=== PATIENT | female | born 1985 | race American Indian/Alaskan Native ===

== ENCOUNTER 2017-06-30 17:58 | Emergency (ER) | payer SELFPAY ==
[2017-06-30 20:29] VITALS: BP 122/54
--- NOTE | 2017-06-30 23:57 | Emergency Department Report ---
ED ENT HPI - General Chief complaint: Sore Throat Stated complaint: SORE THROAT Time Seen by Provider: 06/30/17 23:53 Source: patient Mode of arrival: Ambulatory Limitations: No Limitations - History of Present Illness Initial comments: 32-year-old female comes in complaining of sore throat for 2 days. Patient reports that it hurts to swallow. She has no other complaints. She reports the pain is 6 out of 10. She has not taken any pain medication for this. Has a past medical history migraines. Currently takes no medications. MD complaint: sore throat, difficulty swallowing -: days(s) (2) Location: throat Severity scale (0 -10): 9 Quality: aching, sharp Consistency: constant Improves with: none Worsens with: swallowing Associated Symptoms: sore throat - Related Data Previous Rx's Medication Instructions Recorded Last Taken Type Butalbit/Acetamin/Caff/Codeine 1 each PO Q4H PRN #20 capsule 12/18/15 Unknown Rx [Fioricet/Codeine 45-547-58-30] Ibuprofen [Motrin 800 MG tab] 800 mg PO Q8H PRN #15 tablet 07/01/17 Unknown Rx Allergies Allergy/AdvReac Type Severity Reaction Status Date / Time No Known Allergies Allergy Unverified 05/06/14 11:36 ED Dental HPI - General Chief complaint: Sore Throat Stated complaint: SORE THROAT Time Seen by Provider: 06/30/17 23:53 Source: patient Mode of arrival: Ambulatory Limitations: No Limitations - Related Data Previous Rx's Medication Instructions Recorded Last Taken Type Butalbit/Acetamin/Caff/Codeine 1 each PO Q4H PRN #20 capsule 12/18/15 Unknown Rx [Fioricet/Codeine [id number]] Ibuprofen [Motrin 800 MG tab] 800 mg PO Q8H PRN #15 tablet 07/01/17 Unknown Rx Allergies Allergy/AdvReac Type Severity Reaction Status Date / Time No Known Allergies Allergy Unverified 05/06/14 11:36 ED Review of Systems ROS: Stated complaint: SORE THROAT Other details as noted in HPI Constitutional: denies: chills, fever Eyes: denies: eye pain, eye discharge, vision change ENT: throat pain Respiratory: denies: cough, shortness of breath, wheezing Cardiovascular: denies: chest pain, palpitations Endocrine: no symptoms reported Gastrointestinal: denies: abdominal pain, nausea, diarrhea Genitourinary: denies: urgency, dysuria, discharge Musculoskeletal: denies: back pain, joint swelling, arthralgia Skin: denies: rash, lesions Neurological: denies: headache, weakness, paresthesias Psychiatric: denies: anxiety, depression Hematological/Lymphatic: denies: easy bleeding, easy bruising ED Past Medical Hx - Past Medical History Previous Medical History?: Yes Hx Headaches / Migraines: Yes - Surgical History Past Surgical History?: No - Social History Smoking Status: Never Smoker Substance Use Type: None - Medications Home Medications: Home Medications Medication Instructions Recorded Confirmed Last Taken Type Butalbit/Acetamin/Caff/Codeine 1 each PO Q4H PRN #20 capsule 12/18/15 Unknown Rx [Fioricet/Codeine 92-375-69-30] Ibuprofen [Motrin 800 MG tab] 800 mg PO Q8H PRN #15 tablet 07/01/17 Unknown Rx ED Physical Exam - General Limitations: No Limitations General appearance: alert, in no apparent distress - Head Head exam: Present: atraumatic, normocephalic - Eye Eye exam: Present: normal appearance - ENT ENT exam: Present: mucous membranes moist - Expanded ENT Exam Expanded Throat exam: Positive: tonsillar erythema - Neck Neck exam: Present: normal inspection - Respiratory Respiratory exam: Present: normal lung sounds bilaterally. Absent: respiratory distress - Cardiovascular Cardiovascular Exam: Present: regular rate, normal rhythm. Absent: systolic murmur, diastolic murmur, rubs, gallop - Neurological Exam Neurological exam: Present: alert, oriented X3 - Psychiatric Psychiatric exam: Present: normal affect, normal mood - Skin Skin exam: Present: warm, dry, intact, normal color. Absent: rash ED Course Vital Signs 06/30/17 20:27 Temperature 98.6 F Pulse Rate 85 Respiratory 18 Rate Blood Pressure 122/54 O2 Sat by Pulse 99 Oximetry ED Medical Decision Making - Medical Decision Making Patient has been evaluated with this provider and faster. Discussed the patient that her strep test was negative. Discussed the patient that she could take Tylenol or Motrin for pain. She needs to follow-up with her providers at [facility]. Critical care attestation.: If time is entered above; I have spent that time in minutes in the direct care of this critically ill patient, excluding procedure time. ED Disposition Clinical Impression: Sore throat (viral) Disposition: DC-01 TO HOME OR SELFCARE Is pt being admited?: No Does the pt Need Aspirin: No Condition: Stable Instructions: Analgesic/Antihistamine/Antitussive (By mouth) Additional Instructions: Please take ibuprofen as needed for pain. Warm salt water gargles as needed. Follow-up with her [facility] provider for further evaluation. Prescriptions: Ibuprofen [Motrin 800 MG tab] 800 mg PO Q8H PRN #15 tablet PRN Reason: Pain Referrals: ANY BRITT MD [Primary Care Provider] - 3-5 Days [facility] [Provider Group] - 3-5 Days Forms: Work/School Release Form(ED)
[2017-06-30] MEDS ORDERED: MOTRIN PO ONE (23:58)
[2017-06-30] MEDS ORDERED: LIDOCAINE VISCOUS 2% PO ONE (23:58)
== END 2017-07-01 00:25 | disposition home or self-care (01) ==
LOC: ED 17:58
DX: J02.9 Acute pharyngitis, unspecified (principal)
CPT/HCPCS: 87116; 87430; 99282